=== PATIENT | male | born 1985 | race Caucasian/White ===

== ENCOUNTER 2018-04-02 02:33 | Emergency (ER) | payer OTHER ==
[~2018-04-02] VITALS: Ht 182.9 cm; Wt 81.6 kg
[2018-04-02 02:38] VITALS: BP 102/67
[2018-04-02] MEDS ORDERED: ABILIFY10 MG ORAL ×2 (02:49→02:56)
[2018-04-02 03:38] LABS: BILIRUBIN, URINE NEGATIVE (NEGATIVE); GLUCOSE, URINE (UA) NEGATIVE (NEGATIVE); KETONES,URINE NEGATIVE (NEGATIVE); LEUKOCYTE ESTERASE ,URINE NEGATIVE (NEGATIVE); NITRITE,URINE NEGATIVE (NEGATIVE); PH,URINE 6 (4.5-8.0); UROBILINOGEN,URINE 1 MG/DL (0.0-1.0)
[2018-04-02 03:44] LABS: APPEARANCE,URINE CLEAR; COLOR,URINE YELLOW; PROTEIN,URINE NEGATIVE (NEGATIVE)
--- NOTE | 2018-04-02 03:46 | Emergency Room Report ---
History of Present Illness General Chief Complaint: Behavioral Complaint Source: Patient Present Illness HPI Patient brought in by [place] [employer] with police. Please patient patient on a hold for grave disability. He states he has schizophrenia but hasn't been taking his medication. Is complaining to them about foot pain from walking excessively. He denies suicidal or homicidal ideation at this time. The patient denies chest pain, shortness of breath, palpitations, nausea, vomiting, diarrhea, sore throat, headache, change in vision joint pain (aside from his feet). The patient is supposed be taking Abilify and a second medication that he is uncertain of. Allergies: Coded Allergies: No Known Allergies (Unverified , 04/02/18) Patient History Past Medical History: see triage record Social History: Reports: smoking; Denies: alcohol use, drug use Social History [place] Reviewed Nursing Documentation: PMH: Agreed; PSxH: Agreed Nursing Documentation-PMH Past Medical History: No History, Except For History Of Psychiatric Problem: Yes - schizophrenia Review of Systems All Other Systems: negative except mentioned in HPI Physical Exam Vital Signs Date Time Temp Pulse Resp B/P (MAP) Pulse Ox O2 Delivery O2 Flow Rate FiO2 04/02/18 02:30 98.9 77 16 122/86 99 Room Air 99.0 Sp02 EP Interpretation: reviewed, normal General Appearance: well appearing, no apparent distress, GCS 15, other - Slightly disheveled Head: normocephalic, atraumatic Eyes: bilateral eye normal inspection, bilateral eye PERRL, bilateral eye EOMI ENT: moist mucus membranes Neck: supple Respiratory: lungs clear, normal breath sounds Cardiovascular #1: regular rate, rhythm Cardiovascular #2: 2+ radial (R) Gastrointestinal: normal inspection, normal bowel sounds, non tender, no mass, non-distended, scaphoid Musculoskeletal: back normal, gait/station normal, normal range of motion Neurologic: alert, cost controller III-XII nml as tested, motor strength/tone normal, DTRs symmetric, sensory intact, cerebellar normal, normal gait, speech normal, oriented - 2 does not know da Psychiatric: no suicidal/homicidal ideation, depressed affect Skin: warm/dry, other - Cornified changes of feet without erythema Medical Decision Making Diagnostic Impression: Primary Impression: Schizophrenia Qualified Codes: F20.9 - Schizophrenia, unspecified ER Course Patient presents with noncompliance of his psychiatric medication. He denies suicidal or homicidal ideation at this time. Please of placed him on a hold for grave disability. At this point is compliant. He to the medical evaluation to exclude a left right abnormality and other medical emergencies. He'll be given a dose of Abilify here. Labs are significant for slightly elevated white count. H&H is normal. In addition CPK is minimally elevated. Tox screen is positive for THC. The patient is medically cleared at 4:30 AM. He's resting calmly. The fact he is on a 5150 he will need psychiatric evaluation or transfer for admission psychiatrically. [place] refused due to CK. Repeating. CK trending downwards. Still medically cleared. Patient improved with medication. Patient signed out to Dr. Mendoza. Laboratory Tests Test 04/02/18 03:33 White Blood Count 11.7 K/UL (4.8-10.8) H Red Blood Count 5.21 M/UL (4.70-6.10) Hemoglobin 15.4 G/DL (14.2-18.0) Hematocrit 46.5 % (42.0-52.0) Mean Corpuscular Volume 89 FL (80-99) Mean Corpuscular Hemoglobin 29.5 PG (27.0-31.0) Mean Corpuscular Hemoglobin Concent 33.0 G/DL (32.0-36.0) Red Cell Distribution Width 13.1 % (11.6-14.8) Platelet Count 285 K/UL (150-450) Mean Platelet Volume 7.2 FL (6.5-10.1) Neutrophils (%) (Auto) 79.9 % (45.0-75.0) H Lymphocytes (%) (Auto) 12.2 % (20.0-45.0) L Monocytes (%) (Auto) 6.6 % (1.0-10.0) Eosinophils (%) (Auto) 0.5 % (0.0-3.0) Basophils (%) (Auto) 0.9 % (0.0-2.0) Urine Color Yellow Urine Appearance Clear Urine pH 6 (4.5-8.0) Urine Specific [place] 1.015 (1.005-1.035) Urine Protein Negative (NEGATIVE) Urine Glucose (UA) Negative (NEGATIVE) Urine Ketones Negative (NEGATIVE) Urine Blood Negative (NEGATIVE) Urine Nitrite Negative (NEGATIVE) Urine Bilirubin Negative (NEGATIVE) Urine Urobilinogen 1 MG/DL (0.0-1.0) H Urine Leukocyte Esterase Negative (NEGATIVE) Sodium Level 139 MMOL/L (136-145) Potassium Level 3.5 MMOL/L (3.5-5.1) Chloride Level 103 MMOL/L (98-107) Carbon Dioxide Level 27 MMOL/L (21-32) Anion Gap 9 mmol/L (5-15) Blood Urea Nitrogen 15 mg/dL (7-18) Creatinine 1.0 MG/DL (0.55-1.30) Estimate Glomerular Filtration Rate > 60 mL/min (>60) Glucose Level 97 MG/DL (74-106) Calcium Level 8.5 MG/DL (8.5-10.1) Total Bilirubin 0.6 MG/DL (0.2-1.0) Aspartate Amino Transferase (AST) 44 U/L (15-37) H Alanine Aminotransferase (ALT) 48 U/L (12-78) Alkaline Phosphatase 64 U/L (46-116) Total Creatine Kinase 812 U/L (26-308) H Total Protein 7.4 G/DL (6.4-8.2) Albumin 3.7 G/DL (3.4-5.0) Globulin 3.7 g/dL Albumin/Globulin Ratio 1.0 (1.0-2.7) Salicylates Level 0.6 ug/mL (2.8-20) L Urine Opiates Screen Negative (NEGATIVE) Acetaminophen Level < 2 MCG/ML (10-30) L Urine Barbiturates Screen Negative (NEGATIVE) Phencyclidine (PCP) Screen Negative (NEGATIVE) Urine Amphetamines Screen Negative (NEGATIVE) Urine Benzodiazepines Screen Negative (NEGATIVE) Urine Cocaine Screen Negative (NEGATIVE) Urine Marijuana (THC) Screen Positive (NEGATIVE) H Serum Alcohol < 3 mg/dL EKG Diagnostic Results Rate: normal Rhythm: NSR ST Segments: no acute changes Rhythm Strip Diag. Results EP Interpretation: yes Rhythm: NSR, no PVC's, no ectopy Status: improved Disposition: XFER TO PSYCH HOSP/UNIT Condition: Stable Referrals: TYRA AHUJA (PCP) Avinash Sepulveda M.D. Apr 02, 2018 03:46
[2018-04-02 03:47] LABS: ANION GAP 9 mmol/L (5-15); BLOOD UREA NITROGEN 15 mg/dL (7-18); CALCIUM 8.5 MG/DL (8.5-10.1); CARBON DIOXIDE 27 MMOL/L (21-32); CHLORIDE 103 MMOL/L (98-107); POTASSIUM 3.5 MMOL/L (3.5-5.1); SODIUM 139 MMOL/L (136-145)
[2018-04-02 03:48] LABS: BASOPHILS % (AUTO) 0.9 % (0.0-2.0); EOSINOPHILS % (AUTO) 0.5 % (0.0-3.0); HEMATOCRIT 46.5 % (42.0-52.0); HEMOGLOBIN 15.4 G/DL (14.2-18.0); LYMPHOCYTES % (AUTO) 12.2 % (20.0-45.0); MEAN CORPUSCULAR VOLUME 89 FL (80-99); MONOCYTES % (AUTO) 6.6 % (1.0-10.0); NEUTROPHILS % (AUTO) 79.9 % (45.0-75.0); PLATELET COUNT 285 K/UL (150-450); RED BLOOD COUNT 5.21 M/UL (4.70-6.10); RED CELL DISTRIBUTION WIDTH 13.1 % (11.6-14.8); WHITE BLOOD COUNT 11.7 K/UL (4.8-10.8)
[2018-04-02 03:51] LABS: ALANINE AMINOTRANSFERASE 48 U/L (12-78); ALBUMIN 3.7 G/DL (3.4-5.0); ALKALINE PHOSPHATASE 64 U/L (46-116); ASPARTATE AMINO TRANSFERASE 44 U/L (15-37); BILIRUBIN,TOTAL 0.6 MG/DL (0.2-1.0); CREATINE KINASE 812 U/L (26-308)
[2018-04-02 07:49] LABS: CREATINE KINASE 548 U/L (26-308)
[2018-04-02 07:52] VITALS: BP 107/65
[2018-04-02 11:05] VITALS: BP 98/60
[2018-04-02 15:09] VITALS: BP 116/70
[2018-04-02 17:22] LABS: CREATINE KINASE 305 U/L (26-308)
[2018-04-02 18:30] VITALS: BP 121/78
[2018-04-02 22:54] VITALS: BP 113/64
[2018-04-03] VITALS (8 sets, daily range): BP systolic 112–128; BP diastolic 62–86
--- NOTE | 2018-04-03 12:02 | Cardiology Report ---
APPROVED REPORT EKG Measurement Heart [id number] Normal sinus rhythm Normal ECG
[2018-04-04 03:20] VITALS: BP 124/68
[2018-04-04 06:27] VITALS: BP 115/76
[2018-04-04 07:23] VITALS: BP 122/73
[2018-04-04] MEDS ORDERED: Bacitracin Oint UD TOPIC ONE (11:00)
[2018-04-04 12:00] VITALS: BP 105/67
[2018-04-04 13:14] VITALS: BP 111/71
--- NOTE | 2018-04-05 05:00 | Consultation ---
DATE OF CONSULTATION: 04/04/2018 CONSULTING PHYSICIAN: Merrill Peraza M.D. HISTORY OF PRESENT ILLNESS: This is a 32-year-old male with a history of mental illness, schizophrenia, and depression, who was admitted on a 5150 hold. The patient stated that he called 911 himself and stated that he did not have any food and he was hungry. Therefore, he told the police that he is not doing well and he needs to be taken to the hospital. During evaluation, the patient was calm, did not endorse any psychotic symptoms. He was providing inconsistent information for example, he stated that he moved from [place] recently and he forgot his ID in [place] and he was not able to provide ID. When I asked him how did he travel without the ID, he stated he lost his ID on his way to [place]. The patient also stated that he is homeless and stated he has an apartment in [place]. The patient is oriented to thought process. He had multiple ____ in the ER. He does not endorse any suicidal or homicidal ideation. PAST PSYCHIATRIC HISTORY: He stated he had several psychiatric hospitalizations, moved to [place] about 1 week ago. PAST MEDICAL HISTORY: None. ALLERGIES: No known drug allergies. SUBSTANCE ABUSE HISTORY: He denied any illicit drug use or alcohol of recent use. MENTAL STATUS EXAMINATION: The patient is alert and oriented times self, place, time, and situation. Mood is neutral. Affect is full range. Congruent with mood. Thought process, linear and goal oriented. Thought content, no suicidal or homicidal ideations. No delusions. No auditory or visual hallucination was noted. Insight and judgment are fair. ASSESSMENT: [place] I Schizophrenia by history. [place] II Deferred. [place] III As above. [place] IV Low to moderate. [place] V 60 to 70. PLAN: We will discontinue 5150 hold. The patient will be discharged as he is not meeting the criteria for 5150 nor higher level of care. The patient was referred to outpatient psychiatric program. No medication was prescribed. Merrill Peraza M.D. DR: ANTONIA JOB#: [id number] CC:
== END 2018-04-04 13:17 | disposition home or self-care (01) ==
LOC: EDBD 02:33 → EMR 02:46
DX: F20.9 Schizophrenia, unspecified (principal); Z91.14 Patient's other noncompliance with medication regimen
CPT/HCPCS: 36415; 80053; 80307; 80329; 81003; 82550; 85025; 93005; 96360; 99285